=== PATIENT | male | born 2000 | race Two or more races ===

== ENCOUNTER 2022-02-24 02:08 | Emergency (ER) | payer OTHER, SELFPAY ==
[2022-02-24] MEDS ORDERED: Fentanyl 100 MCG/2 ML VIAL ONE (03:34)
== END 2022-02-24 03:18 | disposition home or self-care (01) ==
LOC: ERS 02:08
DX: S43.015A Anterior dislocation of left humerus, initial encounter (principal); X58.XXXA Exposure to other specified factors, initial encounter
CPT/HCPCS: J3010

== ENCOUNTER 2022-03-02 01:29 | Emergency (ER) | payer SELFPAY ==
[2022-03-02] MEDS ORDERED: Ketorolac Tromethamine 30 MG/ML VIAL ONE (02:52)
== END 2022-03-02 03:38 | disposition home or self-care (01) ==
LOC: ERS 01:29
DX: S43.005A Unspecified dislocation of left shoulder joint, initial encounter (principal)
CPT/HCPCS: 23650; 96372; J1885

== ENCOUNTER 2022-10-01 12:35 | Emergency (ER) | payer SELFPAY ==
[~2022-10-01 12:35] MED LIST: Iopamidol-370 76% 500 ML 1 ML ONE
[2022-10-01 13:53] LABS: ALT (SGPT) 15 U/L (8-55); AST (SGOT) 19 U/L (5-34); Albumin 4.7 g/dL (3.5-5.0); Alkaline Phosphatase 50 U/L (40-110); Anion Gap 12 mmol/L (10-20); BUN (Urea Nitrogen) 15 mg/dL (8.9-20.6); Bilirubin, Total 4.2 mg/dL (0.2-1.2); Calc. Creatinine Clearance 0 mL/min (70-130); Calcium 9.9 mg/dL (7.8-10.44); Carbon Dioxide 28 mmol/L (22-29); Chloride 103 mmol/L (98-107); Estimated GFR 94; Globulin 3.1 g/dL (2.4-3.5); Glucose 95 mg/dL (70-105); Potassium 4.5 mmol/L (3.5-5.1); Protein, Total 7.8 g/dL (6.0-8.3); Sodium 138 mmol/L (136-145)
[2022-10-01 14:30] LABS: Hemoglobin 16.4 g/dL (14.0-18.0); Mean Corpuscular HGB CONC 33.5 g/dL (32.0-36.0); Mean Corpuscular Hemoglobin 30.9 pg (27.0-31.0); Mean Corpuscular Volume 92.4 fl (78.0-98.0); Mean Platelet Volume 8.8 fL (7.4-10.4); Platelet Count 121 10x3/uL (130-400); RBC Distribution Width 11.4 % (11.5-14.5); Red Blood Cell (RBC) Count 5.31 mill/uL (4.70-6.10); White Blood Cell (WBC) Count 9.5 10x3/uL (4.8-10.8)
[2022-10-01 14:31] LABS: #Eosinphils 0.1 thou/uL (0.0-0.7); #Lymphocytes 0.9 thou/uL (1.20-3.40); #Monocytes 0.5 thou/uL (0.11-0.59); %Basophils 0.2 % (0.0-1.0); %Eosinophils 0.7 % (0.0-10.0); %Lymphocytes 9.2 % (21.0-51.0); %Monocytes 5.7 % (0.0-10.0); %Neutrophils 84.2 % (42.0-75.0)
[2022-10-01 14:52] LABS: Bilirubin Negative (Negative); Blood, Urine Negative (Negative); Clarity Clear (Clear); Glucose, Urine (Dipstick) Normal (Negative); Ketone, Urine 20 mg/dL (Negative); Leukocyte Negative Leu/uL (Negative); Nitrite Negative (Negative); Protein, Urine (Dipstick) Negative (Neg-Trace); Specific Gravity, Urine 1.021 (1.002-1.036); pH, Urine 6.5 (5.0-9.0)
[2022-10-01 15:21] LABS: PTT 30.3 sec (22.9-36.1)
== END 2022-10-01 18:03 | disposition home or self-care (01) ==
LOC: ERS 12:35
DX: R04.2 Hemoptysis (principal); F17.210 Nicotine dependence, cigarettes, uncomplicated
CPT/HCPCS: 36415; 71046; 71275; 80053; 81003; 84484; 85025; 85610; 85730; Q9967